=== PATIENT | female | born 1980 | race Caucasian/White ===

== ENCOUNTER 2020-05-30 09:26 | Emergency (ER) | payer BC ==
[~2020-05-30] VITALS: Ht 160 cm; Wt 84.1 kg
[2020-05-30 09:33] VITALS: TEMP 98.9
[2020-05-30] MEDS ORDERED: XANAX 0.5MG0.5 MG PO (10:59)
[2020-05-30 11:11] VITALS: BP 124/84; PULSE 73
== END 2020-05-30 11:11 | disposition home or self-care (01) ==
LOC: COL.ER 09:26
DX: F41.0 Panic disorder [episodic paroxysmal anxiety] (principal); Z87.19 Personal history of other diseases of the digestive system; Z88.4 Allergy status to anesthetic agent; Z88.5 Allergy status to narcotic agent; Z88.6 Allergy status to analgesic agent; Z88.8 Allergy status to other drugs, medicaments and biological substances

== ENCOUNTER → 2021-08-31 | Outpatient (CLI) | payer BC ==
[~2021-08-31] MED LIST: XANAX 0.5MG0.5 MG PO
== END ==
LOC: MC.RAD 11:38
DX: Z12.31 Encounter for screening mammogram for malignant neoplasm of breast (principal)